=== PATIENT | male | born 1980 | race Caucasian/White ===

== ENCOUNTER → 2022-02-21 | Outpatient (CLI) | payer OTHER | LOC: HEART 5 14:13 | DX: R06.02 Shortness of breath (principal) | CPT/HCPCS: 94010; 94729 ==

== ENCOUNTER → 2022-03-07 | Outpatient (CLI) | payer OTHER | LOC: KOH-I 15:22 | DX: J84.9 Interstitial pulmonary disease, unspecified (principal); R91.8 Other nonspecific abnormal finding of lung field | CPT/HCPCS: 71250 ==

== ENCOUNTER 2022-04-02 21:23 | Emergency (ER) | payer OTHER ==
[2022-04-02 21:52] LABS: RED BLOOD COUNT 5.58 M/UL (4.20-5.50); WHITE BLOOD COUNT 12.4 K/UL (4.5-11.0)
[2022-04-03 04:52] LABS: BUN/CREATININE RATIO 17 (0-10)
[2022-04-03] MEDS ORDERED: BENTYL 20MG TAB20 MG PO (05:09)
[2022-04-03] MEDS ORDERED: FLORASTOR250 MG PO (05:09)
[2022-04-03] MEDS ORDERED: ZOFRAN ODT 4 MG4 MG PO (05:09)
== END 2022-04-03 05:45 | disposition home or self-care (01) ==
LOC: ER1 21:23
PROVIDERS: Physician Assistant
DX: B34.9 Viral infection, unspecified (principal); Z20.822 Contact with and (suspected) exposure to COVID-19
CPT/HCPCS: 0240U; 71045; 80048; 80053; 81001; 83735; 85025; 87086; 96360; 99284

== ENCOUNTER → 2022-05-04 | Outpatient (CLI) | payer OTHER ==
[~2022-05-04] MED LIST: BENTYL 20MG TAB20 MG PO; FLORASTOR250 MG PO; ZOFRAN ODT 4 MG4 MG PO
== END ==
LOC: SLEEP 08:30
DX: G47.19 Other hypersomnia (principal); G47.34 Idiopathic sleep related nonobstructive alveolar hypoventilation; G47.8 Other sleep disorders; F51.3 Sleepwalking [somnambulism]; R06.83 Snoring
CPT/HCPCS: 95810